=== PATIENT | male | born 1960 ===

== ENCOUNTER 2024-08-01 08:11 | Outpatient (CLI) | payer BC, SELFPAY | END 2024-08-01 08:12 | disposition home or self-care (01) | PROVIDERS: Visit Provider Registered Nurse | DX: I10 Essential (primary) hypertension (principal); Z13.220 Encounter for screening for lipoid disorders; Z12.5 Encounter for screening for malignant neoplasm of prostate | CPT/HCPCS: 80053; 80061; G0103 ==

== ENCOUNTER 2024-12-22 13:30 | Outpatient (CLI) | payer BC, SELFPAY | END 2024-12-22 13:31 | disposition home or self-care (01) | PROVIDERS: PCP Registered Nurse; Visit Provider Registered Nurse | DX: R06.02 Shortness of breath (principal); I10 Essential (primary) hypertension | CPT/HCPCS: 80048; 83880 ==